=== PATIENT | male | born 1975 | race Caucasian/White ===

== ENCOUNTER 2020-12-15 08:35 | Observation (INO) | payer OTHER, SELFPAY ==
[2020-12-15] VITALS (14 sets, daily range): BP systolic 117–166; BP diastolic 80–97; PULSE 91–108; RESP 16–20; TEMP 36.5–36.8; O2SAT 95–100; BMI 26.4; BMI 26.6
--- NOTE | 2020-12-15 | IR_ITS ---
APPROVED REPORT Patient Location: Inpatient Past Due Accounts Clerk: RAMSES Oates RT (R) PROCEDURES Left heart catheterization Left ventriculogram Selective coronary angiogram INDICATION Unstable angina Informed consent was obtained prior to the procedure. COMPLICATIONS NONE Estimated Blood Loss: LESS THAN 10 ML TECHNIQUE One percent lidocaine used to anesthetize the right anterior aspect of the wrist. The right radial artery was accessed via the Seldinger technique. A 6 Latvian sheath was placed in the right radial artery. 2.5 mg of verapamil, 800 mcg of nitroglycerin, 1mg Lidocaine and 5000 U Heparin were given through the arterial sheath. The trap catheter was also used to perform left heart catheterization, left ventriculogram and selective coronary angiogram. At the end of the procedure the sheath was removed good hemostasis was achieved using Traclet band, patient was transferred to the postop holding area in stable condition. ANGIOGRAPHIC RESULTS The left main artery Normal The left anterior descending artery Proximal 20 mid vessel 30% stenosis The circumflex artery Large dominant with mild 10 to 20% luminal irregularities The right coronary artery Vestigial normal The THOMAS ventriculogram reveals Normal 65% The left ventricular end-diastolic pressure 10 mmHg IMPRESSION Mild to moderate proximal and mid LAD disease as described above Mild disease in the circumflex artery Normal ejection fraction Normal left ventricular NaSal pressure PLAN 1. Medical management Electronically signed by : Gwyn Motley MD 12/22/2020 11:31:04
--- NOTE | 2020-12-15 01:01 | PC.NURSE ---
Received request from Dr. Motley/Dr. Higgins to accept patient as Direct Admission from [facility] ED. Bed assignment obtained. Verbal orders from Dr. Higgins at this time: Admit for observation to med/surg floor activity - bed rest with bathroom privileges cardiac diet continuos cardiac monitoring AM Labs - CBC, CMP troponin series Resume all home medications Morphine 2mg IVP Q4H PRN for severe pain Zofran 4mg IVP Q6H PRN for nausea Nitropaste 0.5gm TD TID Lovenox SQ injection, 1mg/kg BID Cardiology consult Chest Xray - routine Orders repeated and verified and entered. Spoke to Giovana RN at [facility] ED, and advised patient would need a covid swab for admission, she advised they completed one at their facility and it was negative. I gave Giovana the bed assignment, as well as the # to call report to. She advised that patient would be coming by EMS, and that it would be awhile before he arrived. Instructed her to please call and inform me when the patient left their facility.
--- NOTE | 2020-12-15 02:20 | PC.NURSE ---
Spoke to Giovana RN at [facility] ED to check status on PT ETA. She advised at this time, patient had not left their facility due to EMS delays.
--- NOTE | 2020-12-15 04:06 | PC.NURSE ---
Francy RN at [facility] called to update on ETA of patient's transfer. She stated that there was another critical patient in their ED that needed to be transferred elsewhere, and the next available transfer truck wouldn't be able to bring patient to this facility until 0800. Updated nightshift charge, and will also relay this to Dr. Higgins and Dr. Motley on am rounds.
--- NOTE | 2020-12-15 06:00 | XR_ITS ---
PROCEDURE INFORMATION: Exam: XR Chest Exam date and time: 12/15/2020 6:00 AM Age: 45 years old Clinical indication: Sternal or substernal pain; Patient HX: Patient was emergently transferred to this hospital for a cardiac catheterization. Patient had heart cath about 30 minutes ago. ; Additional info: Chest pain TECHNIQUE: Imaging protocol: XR of the chest. Views: 2 views. COMPARISON: No relevant prior studies available. FINDINGS: Lungs: Hypoventilation/low lung volumes. Patchy atelectasis in the lower lobes and right upper lobe, greatest at the left base. Nonspecific interstitial prominence in the central lungs and right upper lobe, which may be chronic or acute in nature, no prior studies are available to compare. There is no focal consolidation. Pleural spaces: There is pleural thickening suggested along the lateral right chest wall, but no significant layering effusion visible. No pneumothorax. Heart/Mediastinum: Upper normal heart size. The aortic arch appears tortuous or ectatic. Bones/joints: Mild chronic appearing anterior wedge compression deformities at the thoracolumbar junction with kyphosis. Multilevel disc narrowing and spondylosis. Cervical spine degenerative changes with evidence of facet arthropathy. Soft tissues: No acute findings in the soft tissues. Overlying lunchroom monitor electrodes. IMPRESSION: 1. Prominent patchy subsegmental atelectasis, and nonspecific interstitial prominence in the lungs. 2. No focal consolidation. 3. Pleural thickening along the lateral right chest wall, no pneumothorax or layering pleural effusion seen. 4. Additional nonemergency and chronic findings as above.
[2020-12-15 09:04] LABS: Coronavirus 19, PCR Not Detected (NotDetected); Influenza A, PCR Not Detected (NotDetected); Influenza B, PCR Not Detected (NotDetected)
--- NOTE | 2020-12-15 09:22 | HMH.PHAINT ---
MEDICATION RECONCILIATION COMPLETE USING SURESCRIPTS AND PREVIOUS OFFICE VISIT
[2020-12-15 09:47] LABS: Basophils # 0.1 K/mm3 (0-0.2); Basophils % 0.6 % (0.1-2.0); Eosinophils # 0.1 K/mm3 (0.0-0.4); Eosinophils % 0.7 % (0.1-12.0); Hematocrit 44.7 % (42.0-52.0); Hemoglobin 15.5 g/dL (14.1-18.0); Lymphocytes # 1.5 K/mm3 (0.7-4.5); Mean Corpuscular HGB Conc 34.7 g/dL (31.8-35.4); Mean Corpuscular Hemoglobin 31.5 pg (27.0-31.2); Mean Corpuscular Volume 90.8 fl (80-94); Mean Platelet Volume 7.9 fl (7.4-10.4); Monocytes # 0.4 K/mm3 (0.1-1.0); Monocytes % 4.8 % (1.7-9.3); Neutrophils # 6.5 K/mm3 (1.8-7.8); Platelet Count 257 K/mm3 (142-424); Red Blood Count 4.92 M/mm3 (4.60-6.20); Red Cell Distribution Width 13.5 % (11.5-17.5); White Blood Count 8.5 K/mm3 (4.8-10.8)
--- NOTE | 2020-12-15 09:53 | HMH.CNCARD ---
History of Present Illness Consult date: 12/15/20 Requesting physician: Ruben Higgins Consult reason: chest pain Chief complaint: chest pain Additional Medical History:: 1. Status post tracheoesophageal fistula repair at age 3 months A. History of esophageal stricture, status post ballooning approximately 5 years ago 2. Elevated blood pressure 11/2020. Patient does not take antihypertensive medication. 3. History of normal stress test at [facility], 2020 4. History of palpitations with Holter monitor showing PACs and PVCs [facility] 2020 5. History of cat scratch fever status post 50 lymph nodes removed from right groin. History of present illness: 45-year-old white male transferred from [facility] due to chest pain yesterday. Patient was at a birthday constitution party and upon driving home developed substernal chest pain with left-sided neck and arm numbness/discomfort which prompted the visit to the ER for further evaluation. He was given aspirin and sublingual nitroglycerin with slow, gradual improvement in symptoms. Nitroglycerin paste was placed and due to patient being seen in our office last week was transferred to [facility] for further evaluation. [facility] History Medical History: Reports:: Heart Murmur, Hyperlipidemia, Hypertension *Have you ever received a pneumonia vaccine?: No *Have you received a flu vaccine this season?: No Other Medical History: Reports: Arthritis Other Surgeries: Yes: Hernia Repair - *Social History Smoking Status: Never smoker Alcohol Intake: current Alcohol Intake Frequency:: holidays/special occasions only Substance Use Type: denies use *Occupational Status:: employed Housing: house Household Members: spouse, children *Travel in the last 8 weeks: None Family Hx:: Diabetes, Heart Attack, Alcoholism Meds Home Medications Medication Instructions Recorded Confirmed Type albuterol sulfate 90 mcg/actuation 2 puff INHALATION Q4-6H PRN g 12/08/20 12/15/20 History aerosol inhaler aspirin 81 mg tablet,delayed 81 mg PO DAILY 12/08/20 12/15/20 History release buspirone 15 mg tablet 15 mg PO BID 12/08/20 12/15/20 History esomeprazole magnesium 40 mg 40 mg PO DAILY 12/08/20 12/15/20 History capsule,delayed release loratadine 10 mg tablet 10 mg PO DAILY 12/08/20 12/15/20 History Famotidine [Acid Clinical Services Consultant] 20 mg PO DAILY 12/15/20 12/15/20 History Allergies Allergy/AdvReac Type Severity Reaction Status Date / Time prednisone AdvReac Verified 12/08/20 14:00 Exam Vital signs and Labs for Last 24 Hours: Temp Pulse Resp BP Pulse Ox 97.7 F 95 H 17 166/97 H 97 12/15/20 08:49 12/15/20 08:49 12/15/20 08:49 12/15/20 08:49 12/15/20 08:49 Laboratory Results - last 24 hr 12/15/20 08:55: SARS-CoV-2 (PCR) Not detected, Influenza A Untype (PCR) Not detected, Influenza Type B (PCR) Not detected 12/15/20 09:20: WBC 8.5, RBC 4.92, Hgb 15.5, Hct 44.7, MCV 90.8, MCH 31.5 H, MCHC 34.7, RDW 13.5, Plt Count 257, MPV 7.9, Neut % (Auto) 76.0, Lymph % (Auto) 18.0, Valley % (Auto) 4.8, Eos % (Auto) 0.7, Baso % (Auto) 0.6, Neut # (Auto) 6.5, Lymph # (Auto) 1.5, Valley # (Auto) 0.4, Eos # (Auto) 0.1, Baso # (Auto) 0.1 I & O for Last 24 hours: Intake & Output 12/12/20 12/13/20 12/14/20 12/15/20 11:59 11:59 11:59 11:59 Weight 160 lb - Constitutional no acute distress - *Routine HEENT Exam Head: Present: normocephalic Eye: Present: EOMI, PERRL ENT: Present: mucous membranes moist - *Routine Neck Exam Present: supple. Absent: lymphadenopathy - *Routine Respiratory Exam Present: CTA bilaterally - *Routine Cardiovascular Exam Present: RRR - *Routine Abdominal Exam Present: soft, normoactive bowel sounds. Absent: tenderness - *Routine Extremities Exam Absent: cyanosis, clubbing, edema - *Routine Skin Exam Present: warm. Absent: rash - *Routine Neurological Exam Present: alert, oriented X3 Review of Systems -
--- NOTE | 2020-12-15 09:54 | ECG_ITS ---
APPROVED REPORT Exam: Resting ECG HR:82 bpm ECG Measurements Heart Rate 82 AXES NJ 136 P 36 QRSd 90 QRS 2 QT 370 T 14 QTc 432 Conclusion Normal sinus rhythm Normal ECG Electronically signed by : Reginald Lindsay MD 12/15/2020 21:16:00
[2020-12-15 10:02] LABS: Chloride 104 mmol/L (98-107); Potassium 4.1 mmoL/L (3.5-5.1); Sodium 140 mmol/L (136-145)
[2020-12-15 10:05] LABS: Alanine Aminotransferase 46 U/L (12-78); Albumin Level 4.2 g/dl (3.5-5.0); Albumin/Globulin Ratio 1.4 (1.1-1.8); Alkaline Phosphatase 105 U/L (38-126); Anion Gap 14.1 mEq/L (5-15); Aspartate Amino Transferase 33 U/L (17-59); Bilirubin,Total 0.7 mg/dl (0.2-1.3); Blood Urea Nitrogen 15 mg/dl (9-20); Calcium 9.3 mg/dl (8.4-10.2); Carbon Dioxide 26 mmol/L (22.0-30.0); Creatinine Clearance Estimated 108 mL/min (50-200); Estimated Glomerular Filt Rate 92 ml/min (>60); GFR (African American) 111 ML/MIN (>60); Globulin 3.1 g/dL (1.3-3.2); Glucose 112 mg/dl (74-100); Total Protein,Serum 7.3 g/dl (6.3-8.2)
[2020-12-15 10:23] LABS: Troponin I < 0.01 ng/ml (0.00-0.034)
--- NOTE | 2020-12-15 16:34 | PC.NURSE ---
Pt has done well since arriving back to the floor. VSS. remains at bedside. No other acute changes or complaints, will continue to monitor.
--- NOTE | 2020-12-15 17:37 | HMH.HPDC ---
General - General Admission date:: 12/15/20 Discharge date: 12/15/20 *Admission Date: 12/15/20 *Chief complaint: chest pain *History of present illness: 45-year-old white male transferred from [facility] due to chest pain yesterday. Patient was at a birthday libertarian and upon driving home developed substernal chest pain with left-sided neck and arm numbness/discomfort which prompted the visit to the ER for further evaluation. He was given aspirin and sublingual nitroglycerin with slow, gradual improvement in symptoms. Nitroglycerin paste was placed and due to patient being seen in cardiology office last week was transferred to [facility] for further evaluation. Patient was taken to the [facility] today per Dr. Motley. No significant findings were noted. [employer] relayed that he could be discharged home to follow-up in 1 week. Patient was accessed through the right radial artery. [facility] History Medical History: Reports:: Heart Murmur, Hyperlipidemia, Hypertension *Have you ever received a pneumonia vaccine?: No *Have you received a flu vaccine this season?: No Other Medical History: Reports: Arthritis Other Surgeries: Yes: Hernia Repair - *Social History Smoking Status: Never smoker Alcohol Intake: current Alcohol Intake Frequency:: holidays/special occasions only Substance Use Type: denies use *Occupational Status:: employed Housing: house Household Members: spouse, children *Travel in the last 8 weeks: None Family Hx:: Diabetes, Heart Attack, Alcoholism Review of Systems - Constitutional Denies anorexia - Eyes Denies change in vision - ENT Denies abnormal hearing - *Cardiovascular Reports chest pain, Reports rapid, pounding, or irregular heartbeat - *Respiratory Denies chest congestion - *Gastrointestinal Denies abdominal pain - *Genitourinary Denies difficulty urinating - *Musculoskeletal Denies joint pain - Integumentary/Breasts Denies yellowing of the skin - *Neurologic Denies behavioral changes - Psychiatric Denies behavioral changes - Endocrine Denies cold intolerance, Denies heat intolerance - Hematologic/Lymphatic Denies easy bleeding, Denies easy bruising - Allergic/Immunologic Denies hives Exam Vital signs and Labs for Last 24 Hours: Temp Pulse Resp BP Pulse Ox 98 F 108 H 17 125/88 95 12/15/20 13:21 12/15/20 16:46 12/15/20 16:40 12/15/20 16:40 12/15/20 16:40 Laboratory Results - last 24 hr 12/15/20 08:55: SARS-CoV-2 (PCR) Not detected, Influenza A Untype (PCR) Not detected, Influenza Type B (PCR) Not detected 12/15/20 09:20: WBC 8.5, RBC 4.92, Hgb 15.5, Hct 44.7, MCV 90.8, MCH 31.5 H, MCHC 34.7, RDW 13.5, Plt Count 257, MPV 7.9, Neut % (Auto) 76.0, Lymph % (Auto) 18.0, Banner % (Auto) 4.8, Eos % (Auto) 0.7, Baso % (Auto) 0.6, Neut # (Auto) 6.5, Lymph # (Auto) 1.5, Banner # (Auto) 0.4, Eos # (Auto) 0.1, Baso # (Auto) 0.1 12/15/20 09:20: Sodium 140, Potassium 4.1, Chloride 104, Carbon Dioxide 26, Anion Gap 14.1, BUN 15, Creatinine 0.90, Estimated Creat Clear 108, Estimated GFR 92, Est GFR ( Amer) 111, Glucose 112 H, Calcium 9.3, Total Bilirubin 0.7, AST 33, ALT 46, Alkaline Phosphatase 105, Total Protein 7.3, Albumin 4.2, Globulin 3.1, Albumin/Globulin Ratio 1.4 12/15/20 09:20: Troponin I < 0.01 I & O for Last 24 hours: Intake & Output 12/12/20 12/13/20 12/14/20 12/15/20 23:59 23:59 23:59 23:59 Intake Total 240 / 240 Balance 240 / 240 Weight 160 lb - Constitutional no acute distress - *Routine HEENT Exam Head: Present: normocephalic Eye: Present: EOMI, PERRL ENT: Present: mucous membranes moist - *Routine Neck Exam Present: supple. Absent: lymphadenopathy - *Routine Respiratory Exam Present: CTA bilaterally - *Routine Cardiovascular Exam Present: RRR - *Routine Abdominal Exam Present: soft, normoactive bowel sounds. Absent: tenderness - *Routine Rectal Exam Rectal:: deferred - *R
--- NOTE | 2020-12-15 17:48 | HMH.PHAVTE ---
[facility] Pharmacy VTE Monitoring - Patient Demographics Admission date: 12/15/20 Report Date: 12/15/20 Time: 17:48 Allergies/Adverse Reactions: Patient Allergies prednisone Adverse Reaction (Verified 12/08/20 14:00) Height: 1.65 m Weight: 72.575 kg Patient Problems: Current Active Problems History of esophageal stricture (Chronic) Elevated blood pressure reading (Chronic) Gastroesophageal reflux disease (Chronic) Palpitations (Acute) Chest pain (Acute) - VTE Risk Labs: VTE Related Lab Results Hgb 15.5 g/dL (14.1-18.0) 12/15/20 09:20 Hct 44.7 % (42.0-52.0) 12/15/20 09:20 Plt Count 257 K/mm3 (142-424) 12/15/20 09:20 BUN 15 mg/dl (9-20) 12/15/20 09:20 Creatinine 0.90 mg/dl (0.66-1.25) 12/15/20 09:20 Estimated Creat Clear 108 mL/min (50-200) 12/15/20 09:20 Clinical Trial Participant: No - Prophylaxis VTE Prophylaxis Ordered?: Yes Types of VTE Prophylaxis: TEDS Knee High, Pharmacological Pharmacologic Type: Enoxaparin
== END 2020-12-15 18:29 | disposition home or self-care (01) ==
PROVIDERS: Internal Medicine; Physician Assistant; Admitting Provider Family Medicine; PCP Emergency Medicine; Visit Provider Emergency Medicine
DX: R07.9 Chest pain, unspecified (principal); I25.110 Atherosclerotic heart disease of native coronary artery with unstable angina pectoris; I10 Essential (primary) hypertension; E78.5 Hyperlipidemia, unspecified; K21.9 Gastro-esophageal reflux disease without esophagitis; Z79.899 Other long term (current) drug therapy; Z20.822 Contact with and (suspected) exposure to COVID-19
CPT/HCPCS: 71046; 80053; 84484; 85025; 93005; 93306; 93458; 99152; C1725; C1769; C9803; G0378; J1644; Q9967; U0003; U0005

== ENCOUNTER → 2021-01-06 08:44 | Outpatient (CLI) | payer OTHER, SELFPAY ==
--- NOTE | 2021-01-06 08:48 | CT_ITS ---
PROCEDURE: CT ABDOMEN PELVIS W CON CLINICAL INDICATION: ALTERED BOWEL FUNCTION,CONSTIPATION,BLOATING,NAUSEA COMPARISON: No exams were available for comparison TECHNIQUE: IV Contrast: 75ML Isovue 370 Oral Contrast 450ml Redicat Axial images obtained with sagittal and coronal reformats. All CT scans at the facility use one or more dose reduction, viz: automated exposure control, ma/kV adjustment per patient size (including targeted exams where dose is matched to indication, i.e. head), or iterative reconstruction technique. FINDINGS: LOWER THORAX: Atelectatic or fibrotic changes in the right middle lobe and right lower lobe as well as the lingula and left lower ABDOMEN & PELVIS: Fatty liver. The spleen, adrenal glands, and pancreas have an unremarkable appearance. There is a 2 cm right renal cyst. No renal or ureteral calculi or hydronephrosis. No suspicious renal mass. No intestinal obstruction or free air. No evidence of appendicitis. There is a small umbilical hernia containing fat. Increased soft tissue density is present in the left inguinal region and may be seen with prior inguinal hernia repair. Please correlate with surgical history. No recurrence hernia evident. Mild thoracolumbar kyphosis IMPRESSION: No acute finding. Mild atelectatic changes or scarring in the lung bases. Suspect prior left inguinal hernia repair. Please correlate with surgical history Dictated by: Cj Nye MD 01/07/2021 16:47 Cj Nye MD in [place] 01/07/2021 16:47
== END ==
PROVIDERS: PCP Family Medicine; Visit Provider Nurse Practitioner Family
DX: R10.84 Generalized abdominal pain (principal); R11.0 Nausea; R14.0 Abdominal distension (gaseous); R19.4 Change in bowel habit; K59.00 Constipation, unspecified
CPT/HCPCS: 74177; Q9967

== ENCOUNTER → 2021-01-13 14:05 | Outpatient (CLI) | payer OTHER, SELFPAY ==
--- NOTE | 2021-01-13 14:11 | MR_ITS ---
PROCEDURE: MR HEAD/BRAIN WO CON CLINICAL INDICATION: HEADACHE,SLEEP DISORDER,POOR SHORT TERM MEMORY COMPARISON: No exams were available for comparison TECHNIQUE: Routine multiplanar multi echo sequences are performed without gadolinium enhancement. FINDINGS: No midline shift, mass effect, intracranial hemorrhage, or hydrocephalus is evident. The cerebellopontine angles have an unremarkable appearance. There is an asymmetric area of CSF signal intensity along the medial aspect of the left cerebellum posteriorly suggesting an arachnoid cyst measuring approximately 3 cm cephalad caudad, 1.2 cm AP, and 1.1 cm transverse. The midbrain and brainstem appear unremarkable. The pituitary, optic chiasm, corpus callosum, and craniocervical junction have an unremarkable appearance. Minimal amount of fluid signal in the inferior tip of the right mastoid sinus. No paranasal sinus air-fluid level evident. Unremarkable appearing orbits. IMPRESSION: No acute intracranial findings. The small left posterior fossa arachnoid cyst. Dictated by: Cj Nye MD 01/14/2021 16:12 Cj Nye MD in [place] 01/14/2021 16:12
== END ==
PROVIDERS: PCP Family Medicine; Visit Provider Specialist
DX: R51.9 Headache, unspecified (principal); R07.9 Chest pain, unspecified; R41.3 Other amnesia; G25.0 Essential tremor; G47.19 Other hypersomnia; G47.30 Sleep apnea, unspecified; R53.83 Other fatigue
CPT/HCPCS: 70551

== ENCOUNTER → 2021-01-23 13:33 | Outpatient (CLI) | payer OTHER, SELFPAY | LOC: SL 13:35 | PROVIDERS: PCP Family Medicine; Visit Provider Specialist | DX: G47.30 Sleep apnea, unspecified (principal); R07.9 Chest pain, unspecified; G25.0 Essential tremor; G47.19 Other hypersomnia; R41.3 Other amnesia | CPT/HCPCS: 95806 ==

== ENCOUNTER → 2021-01-29 11:40 | Outpatient (CLI) | payer OTHER, SELFPAY ==
[2021-01-29 12:51] LABS: Basophils # 0.1 K/mm3 (0-0.2); Basophils % 0.9 % (0.1-2.0); Eosinophils # 0.1 K/mm3 (0.0-0.4); Eosinophils % 1.5 % (0.1-12.0); Hematocrit 44.6 % (42.0-52.0); Hemoglobin 15.6 g/dL (14.1-18.0); Lymphocytes # 1.5 K/mm3 (0.7-4.5); Lymphocytes % 29.3 % (10-50); Mean Corpuscular HGB Conc 34.9 g/dL (31.8-35.4); Mean Corpuscular Hemoglobin 31.3 pg (27.0-31.2); Mean Corpuscular Volume 89.7 fl (80-94); Mean Platelet Volume 7.8 fl (7.4-10.4); Monocytes # 0.4 K/mm3 (0.1-1.0); Monocytes % 7.2 % (1.7-9.3); Neutrophils # 3.2 K/mm3 (1.8-7.8); Neutrophils % 61.1 % (37.0-80.0); Platelet Count 236 K/mm3 (142-424); Red Blood Count 4.98 M/mm3 (4.60-6.20); White Blood Count 5.2 K/mm3 (4.8-10.8)
[2021-01-29 13:12] LABS: Thyroid Stimulating Hormone 2.42 uIU/mL (0.465-4.68)
[2021-01-29 13:58] LABS: Erythrocyte Sedimentation Rate 6 mm/hr (0-15)
[2021-02-12 18:23] LABS: Antinuclear Antibodies (ANA) NEGATIVE
== END ==
PROVIDERS: Visit Provider Specialist
DX: R51.9 Headache, unspecified (principal); G93.40 Encephalopathy, unspecified
CPT/HCPCS: 36415; 84439; 84443; 85025; 85651; 86038; 86225; 86235; 86618

== ENCOUNTER → 2021-02-06 08:48 | Outpatient (CLI) | payer OTHER, SELFPAY | PROVIDERS: PCP Family Medicine; Visit Provider Specialist | DX: G93.40 Encephalopathy, unspecified (principal) | CPT/HCPCS: 95816; 95819 ==

== ENCOUNTER → 2021-02-10 07:15 | Outpatient (CLI) | payer OTHER, SELFPAY ==
--- NOTE | 2021-02-10 07:16 | MR_ITS ---
PROCEDURE INFORMATION: Exam: MRA Head Without Contrast; Arteriography Exam date and time: 02/10/2021 7:16 AM Age: 45 years old Clinical indication: Other: Encephalopathy TECHNIQUE: Imaging protocol: Magnetic resonance angiography head without contrast. Exam focused on the arteries. COMPARISON: MR HEAD/BRAIN WO CON 01/13/2021 2:42 PM FINDINGS: ANTERIOR CIRCULATION: Right internal carotid artery: Intracranial segment is patent with no significant stenosis. No aneurysm. Right middle cerebral artery: No occlusion or significant stenosis. No aneurysm. Right anterior cerebral artery: No occlusion or significant stenosis. No aneurysm. Left internal carotid artery: Intracranial segment is patent with no significant stenosis. No aneurysm. Left middle cerebral artery: No occlusion or significant stenosis. No aneurysm. Left anterior cerebral artery: No occlusion or significant stenosis. No aneurysm. POSTERIOR CIRCULATION: Right vertebral artery: No occlusion or significant stenosis. No aneurysm. Left vertebral artery: No occlusion or significant stenosis. No aneurysm. Basilar artery: No occlusion or significant stenosis. No aneurysm. Right posterior cerebral artery: No occlusion or significant stenosis. No aneurysm. Left posterior cerebral artery: No occlusion or significant stenosis. No aneurysm. IMPRESSION: No stenosis or occlusion.
== END ==
PROVIDERS: PCP Family Medicine; Visit Provider Specialist
DX: R51.9 Headache, unspecified (principal)
CPT/HCPCS: 70544

== ENCOUNTER → 2021-04-13 10:36 | Outpatient (CLI) | payer OTHER, SELFPAY | PROVIDERS: Visit Provider Specialist | DX: Z01.812 Encounter for preprocedural laboratory examination (principal); Z11.52 Encounter for screening for COVID-19; G47.33 Obstructive sleep apnea (adult) (pediatric) | CPT/HCPCS: C9803; U0003; U0005 ==

== ENCOUNTER → 2021-04-15 20:47 | Outpatient (CLI) | payer OTHER, SELFPAY | PROVIDERS: PCP Family Medicine; Visit Provider Specialist | DX: R06.83 Snoring (principal) | CPT/HCPCS: 95810 ==

== ENCOUNTER → 2021-05-06 09:53 | Outpatient (CLI) | payer OTHER, SELFPAY ==
[2021-05-06 12:26] LABS: Alanine Aminotransferase 44 U/L (12-78); Albumin Level 4.2 g/dl (3.5-5.0); Alkaline Phosphatase 125 U/L (38-126); Aspartate Amino Transferase 24 U/L (17-59); Bilirubin,Direct 0.2 mg/dl (0.0-0.4); Bilirubin,Indirect 0.5 mg/dL (0.0-0.9); Bilirubin,Total 0.7 mg/dl (0.2-1.3); Bilirubin,Unconjugated 0.5 mg/dL (0.0-1.1); Chol/HDL Ratio 4.6 (1-3.5); Cholesterol 151 mg/dl (140-200); HDL Cholesterol 33 mg/dl (40-60); Total Protein,Serum 6.9 g/dl (6.3-8.2); Triglycerides 207 mg/dl (30-150); VLDL Cholesterol 41 mg/dL (0-40)
[2021-05-06 12:37] LABS: Direct LDL Cholesterol 78.87 mg/dL (100-129)
[2021-05-06 12:49] LABS: Basophils # 0.1 K/mm3 (0-0.2); Basophils % 1.1 % (0.1-2.0); Eosinophils # 0.1 K/mm3 (0.0-0.4); Eosinophils % 1.6 % (0.1-12.0); Hematocrit 48.8 % (42.0-52.0); Hemoglobin 15.8 g/dL (14.1-18.0); Lymphocytes # 1.6 K/mm3 (0.7-4.5); Lymphocytes % 31.1 % (10-50); Mean Corpuscular HGB Conc 32.3 g/dL (31.8-35.4); Mean Corpuscular Hemoglobin 29.7 pg (27.0-31.2); Mean Corpuscular Volume 91.8 fl (80-94); Mean Platelet Volume 7.7 fl (7.4-10.4); Monocytes # 0.3 K/mm3 (0.1-1.0); Monocytes % 6.4 % (1.7-9.3); Neutrophils # 3.1 K/mm3 (1.8-7.8); Neutrophils % 59.8 % (37.0-80.0); Platelet Count 269 K/mm3 (142-424); Red Blood Count 5.31 M/mm3 (4.60-6.20); Red Cell Distribution Width 12.7 % (11.5-17.5); White Blood Count 5.2 K/mm3 (4.8-10.8)
[2021-05-06 13:05] LABS: Anion Gap 13.3 mEq/L (5-15); Blood Urea Nitrogen 13 mg/dl (9-20); Calcium 8.7 mg/dl (8.4-10.2); Carbon Dioxide 25 mmol/L (22.0-30.0); Chloride 104 mmol/L (98-107); Estimated Glomerular Filt Rate 81 ml/min (>60); GFR (African American) 98 ML/MIN (>60); Glucose 115 mg/dl (74-100); Potassium 4.3 mmoL/L (3.5-5.1); Sodium 138 mmol/L (136-145)
== END ==
PROVIDERS: Nurse Practitioner Family; Visit Provider Physician Assistant
DX: R06.00 Dyspnea, unspecified (principal); R00.2 Palpitations; R07.89 Other chest pain; I10 Essential (primary) hypertension; K21.9 Gastro-esophageal reflux disease without esophagitis
CPT/HCPCS: 80048; 80061; 80076; 85025

== ENCOUNTER → 2021-10-09 07:52 | Outpatient (CLI) | payer OTHER, SELFPAY ==
--- NOTE | 2021-10-09 08:01 | MR_ITS ---
FINAL REPORT CLINICAL HISTORY: LBP W/ LEFT LEG PAIN. NUMBNESS AND TINGLING. SYMPTOMS X'S 2 MONTHS NKI. FINDINGS: Multiplanar MR imaging of the lumbar spine was performed without contrast. On the sagittal T2-weighted images, disc degeneration is seen at several levels. The vertebral alignment is normal. There is no evidence of fracture. No bony mass is identified. The conus has an unremarkable appearance. L2-3: There is an annular disc bulge with facet arthropathy and vertebral osteophytes. There is no significant canal stenosis. There is moderate bilateral neural foraminal narrowing. L3-4: An annular disc bulge is present. There is a small left foraminal disc protrusion. There is mild left neural foraminal narrowing. L4-5: An annular disc bulge is present. There is a small left paracentral disc protrusion. There is mild bilateral neural foraminal narrowing. L5-S1: An annular disc bulge is present. There is partial lumbarization of S1. There is mild left neural foraminal narrowing. IMPRESSION: Multilevel degenerative disc disease with areas of neural foraminal narrowing as described. Disc protrusions at L3-4 and L4-5. Partial lumbarization of S1. Reviewed, Interpreted and Dictated by Cordell Mobley III, MD Transcribed by Cora Rivera Authenticated and [facility]
== END ==
PROVIDERS: PCP Family Medicine; Visit Provider Orthopaedic Surgery
DX: M54.50 Low back pain, unspecified (principal)
CPT/HCPCS: 72148; 76376

== ENCOUNTER → 2021-10-28 10:20 | Outpatient (POV) | payer OTHER, SELFPAY ==
[2021-10-28 11:18] VITALS: BP 123/85; PULSE 81; RESP 18; TEMP 37.4; O2SAT 97; BMI 24.3
--- NOTE | 2021-10-28 12:23 | EXP.PAIN.OV ---
HPI Data of Consult Patient: new to practice Consult date: 10/28/21 Requesting Physician: Angelica Otero APRN Primary Care Provider: Julian Chance Consult Narrative Reason for consult: Low back pain, right leg pain History of present illness: Mr. Cr is a 46 year old male who presents today as a new patient. He is a referral from Solis Otero at [facility]. Today the patient rates his pain a 5 out of 10 and states it is all in his mid/low back that radiates into his right leg down to his foot. Patient describes this as a aching, sharp, numb sensation that is constant and worsened with certain positioning and increased activity. He states he also has pain in his neck and right shoulder pain. Patient denies any new trauma or injury to the site. He states this has been going on for years however it has seemed to worsen over the last month. 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 Due to his pain affecting his activities of daily living he has been on disability in the past. Patient has had surgery in the past on his right shoulder. Patient states he has seen a chiropractor years ago that provided some improvement of his symptoms. He has tried [id number] Tylenol and ibuprofen however these do not seem to improve his symptoms. He is also used ice and heat and an at home tens units with some improvement of his symptoms. Patient has done at home exercising and stretches for longer than 6 weeks with no improvement of his symptoms. He has been ordered a referral for physical therapy by [facility] but has not started yet. Patient also states he has had steroids in injective therapy in the past that did provide some improvement of his symptoms. His Lisandro is [phone]. It is been reviewed and appropriate. CC: Angelica Otero APRN [facility] Medical History (Updated 10/28/21 @ 12:33 by Angelica Otero APRN) Asthma Chest pain Constipation Diabetes Dizziness Dyspnea Gastroesophageal reflux disease HLD (hyperlipidemia) HTN (hypertension) Palpitations Social History Smoking Status: Never smoker alcohol intake: current substance use type: denies use current occupational status: unemployed Travel in the last 8 weeks: None household members: spouse and children housing: house Review of Systems Review of Systems Review of systems:: pertinent systems reviewed and negative unless documented below Review of systems (narrative): Review of Systems: General: No recent weight changes, no fever, no sleep disturbances Respiratory: No cough, no shortness of air, no recurring pulmonary infections Cardiovascular/peripheral vascular: No chest pain, no palpitations, no edema, no shortness of breath Gastrointestinal: No new onset incontinence, normal bowel movements reported Genitourinary: No new onset incontinence Musculoskeletal: Low back pain, right leg pain, right shoulder pain, neck pain, mid back pain Psychiatric: [Normal mood/affect] Neurological: [Denies weakness in extremities], [denies balance issues] Meds Home Medications and Allergies Home Medications Medication Instructions Recorded Confirmed Type albuterol sulfate 90 mcg/actuation 2 puff inhalation Q4-6H PRN asthma 12/08/20 10/28/21 History aerosol inhaler aspirin 81 mg tablet,delayed 81 mg PO DAILY heart health 12/08/20 10/28/21 History release loratadine 10 mg tablet 10 mg PO DAILY Allergy symptoms 12/08/20 10/28/21 History pantoprazole 40 mg tablet,delayed 40 mg PO DAILY STOMACH 12/29/20 10/28/21 History release naproxen sodium 220 mg tablet 220 mg PO Q12H Pain 01/05/21 10/28/21 History (Flanax (naproxen)) polyethylene glycol 3350 17 17 g PO DAILY BOWELS 01/05/21 10/28/21 History gram/dose oral powder (Miralax) psyllium husk 0.4 gram capsule 0.4 g PO DAILY BOWELS 01/05/21 10/28/21 History (Fiber (psyllium husk)) fluticasone 113 mcg-salmeterol 14 1 inh
== END ==
PROVIDERS: PCP Family Medicine; Visit Provider Nurse Practitioner Family
DX: M51.36 Other intervertebral disc degeneration, lumbar region (principal); M47.816 Spondylosis without myelopathy or radiculopathy, lumbar region; M79.604 Pain in right leg; M25.511 Pain in right shoulder; M54.2 Cervicalgia; M48.061 Spinal stenosis, lumbar region without neurogenic claudication
CPT/HCPCS: 99202; G0463

== ENCOUNTER → 2021-11-06 08:43 | Outpatient (CLI) | payer OTHER, SELFPAY ==
--- NOTE | 2021-11-06 08:46 | MR_ITS ---
FINAL REPORT CLINICAL HISTORY: NECK AND MID BACK PAIN. NECK PAIN . RIGHT ARM PAIN, NUMBESS, AND TINGLING. HEADACHE. MID BACK PAIN RADIATES BILATERALLY. FINDINGS: Multiplanar MR imaging of the cervical spine was performed without contrast. On the sagittal T2-weighted images, disc degeneration is seen at multiple levels. There is kyphosis centered at C7. There is no evidence of fracture. The vertebral alignment is normal. The cervical spinal cord has an unremarkable appearance without evidence of mass, edema or syrinx. No significant canal stenosis is identified. The cervicomedullary junction is normal. C2-3: There is no significant canal stenosis or neural foraminal narrowing. C3-4: Bilateral uncovertebral osteophytes are present. C4-5: A disc osteophyte complex is present with severe right and mild left neural foraminal narrowing. C5-6: A disc osteophyte complex is present with mild right neural foraminal narrowing. C6-7: A disc osteophyte complex is present with moderate right neural foraminal narrowing. C7-T1: Bilateral uncovertebral osteophytes are present with mild bilateral neural foraminal narrowing. T1-2: No significant canal stenosis or neural foraminal narrowing. T2-3: There is a right foraminal disc protrusion with covering osteophytes and moderate right neural foraminal narrowing. IMPRESSION: Multilevel degenerative disc disease and spondylosis with areas of neural foraminal narrowing which is worse on the right at C4-5. Right foraminal disc protrusion with covering osteophytes at T2-3. Reviewed, Interpreted and Dictated by Cordell Mobley III, MD Transcribed by Karishma Sanchez Authenticated and [facility]
--- NOTE | 2021-11-06 08:46 | MR_ITS ---
FINAL REPORT CLINICAL HISTORY: NECK AND MID BACK PAIN. NECK PAIN . RIGHT ARM PAIN, NUMBESS, AND TINGLING. HEADACHE. MID BACK PAIN RADIATES BILATERALLY. FINDINGS: Multiplanar MR imaging of the thoracic spine was performed without contrast. On the sagittal T2-weighted images, disc degeneration is seen at multiple levels. There is no evidence of fracture. The vertebral alignment is normal. No bony mass is identified. The thoracic spinal cord has an unremarkable appearance without evidence of mass, edema or syrinx. There is no evidence of canal stenosis or cord compression. On the axial images, there is a small left paracentral disc protrusion at T9-10. There is a right foraminal disc protrusion with covering osteophytes at T2-3. This finding is better seen on the cervical spine exam. There are bulges and small anterior osteophytes at multiple levels. There is no evidence of significant canal stenosis. No paraspinous soft tissue abnormality is seen. IMPRESSION: Multilevel disc degeneration and spondylosis at multiple levels. Disc protrusions at T2-3 and T9-10. Reviewed, Interpreted and Dictated by Cordell Mobley III, MD Transcribed by Karishma Sanchez Authenticated and [facility]
== END ==
PROVIDERS: PCP Family Medicine; Visit Provider Nurse Practitioner Family
DX: M54.2 Cervicalgia (principal); M54.6 Pain in thoracic spine
CPT/HCPCS: 72141; 72146; 76376

== ENCOUNTER → 2021-11-12 14:16 | Outpatient (CLI) | payer OTHER, SELFPAY ==
--- NOTE | 2021-11-12 14:17 | US_ITS ---
FINAL REPORT CLINICAL HISTORY: CLAUDICATION,HTN,HLD,PRE DM,REST PAIN FINDINGS: COMPLETE ANKLE/BRACHIAL INDICES BILATERAL Complete ankle brachial indices were obtained. The right CLIFFORD is 1.2. The left CLIFFORD is 1.1. IMPRESSION: ABIs are within normal limits bilaterally. Reviewed, Interpreted and Dictated by Tin Maynard MD Transcribed by Jane Coleman Authenticated and . [facility]
== END ==
PROVIDERS: PCP Family Medicine; Visit Provider Physician Assistant
DX: I70.213 Atherosclerosis of native arteries of extremities with intermittent claudication, bilateral legs (principal)
CPT/HCPCS: 93923

== ENCOUNTER 2021-11-13 11:39 | Day surgery (SDC) | payer OTHER, SELFPAY ==
[2021-11-13 11:51] VITALS: BP 130/87; PULSE 77; RESP 20; TEMP 36.8; O2SAT 98; BMI 23.6
[2021-11-13 12:07] VITALS: BP 138/89; PULSE 80; RESP 18; O2SAT 97
[2021-11-13 12:08] VITALS: BP 119/82; PULSE 79; RESP 18; O2SAT 98
[2021-11-13 12:18] VITALS: BP 137/88; PULSE 74; RESP 20; O2SAT 99
--- NOTE | 2021-11-13 12:18 | P.PCN_ITS ---
Procedure Date: 11/13/21 Time: 12:18 Anesthesiologist:: Sarthak Hernandez MD Complications:: None Pre-procedure Diagnosis:: Degenerative disc disease of lumbar spine with lumbar radiculopathy symptoms Post-procedure Diagnosis:: Same Indications for Procedure:: Patient is a pleasant 46-year-old white male who we are treating for low back pain with lumbar radiculopathy symptoms. He is referred by Dr. Solis Otero with increasing low back pain and leg pain. He is not a surgical candidate. He is referred for physical therapy. We will do a lumbar epidural steroid injection today to see if this will help with his pain symptoms. Procedure Details:: Informed consent was obtained and the risk and benefits of the procedure was explained to the patient. The patient was taken to the procedure room. The patient was placed prone on the procedure table. The patient was prepped and draped in sterile fashion. C-arm fluoroscopy was used to view the lumbar spine. Skin and subcutaneous tissues were anesthetized using lidocaine. I placed an 18-gauge epidural needle and advanced into the L4-L5 interspace using fluoroscopic guidance and [id number] to air. After confirmation of needle placement in the epidural space with dye I injected 2 mL of lidocaine 1.5% with Depo-Medrol 80 mg. Patient tolerated the procedure well with no complications. Plan and Disposition:: Given his epidurogram today I do not see significant stenosis. We will follow- up with him to see how he does with these lumbar pleural steroid injections. We will plan on repeat if beneficial.
== END 2021-11-13 12:19 | disposition home or self-care (01) ==
PROVIDERS: PCP Family Medicine; Visit Provider Anesthesiology
DX: M51.16 Intervertebral disc disorders with radiculopathy, lumbar region (principal)
CPT/HCPCS: 62323; J1040; Q9966

== ENCOUNTER → 2021-11-30 14:50 | Outpatient (POV) | payer OTHER, SELFPAY ==
[2021-11-30 15:04] VITALS: BP 125/84; PULSE 96; RESP 18; TEMP 37.3; O2SAT 99; BMI 23.3
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
== END | disposition home or self-care (01) ==
PROVIDERS: Visit Provider Student in an Organized Health Care Education/Training Program
DX: M51.16 Intervertebral disc disorders with radiculopathy, lumbar region (principal); M50.10 Cervical disc disorder with radiculopathy, unspecified cervical region; M51.34 Other intervertebral disc degeneration, thoracic region
CPT/HCPCS: 99212; G0463

== ENCOUNTER 2021-12-08 13:58 | Day surgery (SDC) | payer OTHER, SELFPAY ==
[2021-12-08 14:10] VITALS: BP 140/87; PULSE 84; RESP 18; TEMP 36.9; O2SAT 98; BMI 23.8
[2021-12-08 14:52] VITALS: BP 130/81; PULSE 91; RESP 18; O2SAT 97
[2021-12-08 14:54] VITALS: BP 130/81; PULSE 91; RESP 18; O2SAT 98
[2021-12-08 14:57] VITALS: BP 128/85; PULSE 84; RESP 18; O2SAT 99
--- NOTE | 2021-12-08 14:58 | EXP.PAIN.PRO ---
Procedure Date: 12/08/21 Time: 14:50 Anesthesiologist:: Darinel Velasquez CRNA Complications:: None Pre-procedure Diagnosis:: Degenerative disc disease thoracic spine. Thoracic radiculopathy Post-procedure Diagnosis:: Same Indications for Procedure:: Patient is a pleasant 46-year-old male that comes to our clinic today for with thoracic back pain as well as thoracic radiculopathy bilaterally. Procedure Details:: Procedure: Thoracic epidural steroid injection under fluoroscopy Informed consent was obtained and the risks and benefits of the procedure were explained to the patient. The patient was taken to the procedure room and noninvasive monitors placed, including noninvasive blood pressure cuff and pulse oximeter. The thoracic spine was viewed using C-arm Fluoroscopy and prepped using Chloraprep as a cleansing solution and the T8-9 interspace was identified using fluoroscopy guidance. Skin and subcutaneous tissues were anesthetized using lidocaine 1.5% and a 25-gauge needle. After this, an 18-gauge Touhy epidural needle was placed into the T8-9 interspace and advanced using fluoroscopic guidance and loss of resistance to air until the epidural space was encountered. After confirmation of needle placement in the epidural space, with dye, a solution containing normal saline, 3 mL and Depo-Medrol 80 mg were incrementally injected into the lumbar epidural space. The patient tolerated the procedure well with no complications. The patient was observed in the Pain Clinic and then discharged home neurologically intact. Plan and Disposition:: Patient was discharged without incident.
== END 2021-12-08 14:47 | disposition home or self-care (01) ==
PROVIDERS: PCP Family Medicine; Visit Provider Nurse Anesthetist, Certified Registered
DX: M51.14 Intervertebral disc disorders with radiculopathy, thoracic region (principal)
CPT/HCPCS: 62321; J1040

== ENCOUNTER → 2021-12-24 13:53 | Outpatient (POV) | payer OTHER, SELFPAY ==
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
[2021-12-24 14:41] VITALS: BP 142/80; PULSE 70; RESP 18; TEMP 37.2; O2SAT 99; BMI 22.7
== END ==
PROVIDERS: Visit Provider Nurse Practitioner Family
DX: M51.16 Intervertebral disc disorders with radiculopathy, lumbar region (principal); M51.14 Intervertebral disc disorders with radiculopathy, thoracic region
CPT/HCPCS: 99212; G0463

== ENCOUNTER 2021-12-29 12:39 | Day surgery (SDC) | payer OTHER, SELFPAY ==
[2021-12-29 12:47] VITALS: BP 140/91; PULSE 84; RESP 18; TEMP 36.9; O2SAT 97; BMI 24.2
[2021-12-29 12:57] VITALS: BP 150/88; PULSE 91; RESP 18; O2SAT 97
[2021-12-29 12:58] VITALS: BP 150/88; PULSE 91; RESP 18; O2SAT 97
--- NOTE | 2021-12-29 13:03 | EXP.PAIN.PRO ---
Procedure Date: 12/29/21 Time: 12:50 Anesthesiologist:: Darinel Velasquez CRNA Complications:: None Pre-procedure Diagnosis:: Degenerative disc thoracic spine. Disc bulge T9-10. Post-procedure Diagnosis:: Same. Indications for Procedure:: Very pleasant 46-year-old male that comes our clinic today for T9-10 epidural steroid injection. Patient had a previous T8-9 on 12/08/2021. Patient reports 2 days of significant improvement terms of his thoracic back pain. Today we will inject T9-10. Patient describes his thoracic pain as constant, dull, aching. He also complains of left side radicular symptoms into the left rib cage. Procedure Details:: Procedure:Thoracic epidural steroid injection under fluoroscopy Informed consent was obtained and the risks and benefits of the procedure were explained to the patient. The patient was taken to the procedure room and noninvasive monitors placed, including noninvasive blood pressure cuff and pulse oximeter. The back was viewed using C-Arm fluoroscopy and prepped using Betadine as a cleansing solution and the T9-T10 interspace was palpated. Skin and subcutaneous tissues were anesthetized using lidocaine 1.5% and a 25-gauge needle. After this, an 18-gauge Touhy epidural needle was placed into the T9-T10 interspace and advanced using fluoroscopic guidance and loss of resistance to air until the epidural space was encountered. After confirmation of needle placement in the epidural space, with dye, a solution containing lidocaine 1.5%, 4 mL and Depo-Medrol 80 mg were incrementally injected into the thoracic epidural space. The patient tolerated the procedure well with no complications. The patient was observed in the Pain Clinic and then discharged home neurologically intact. Plan and Disposition:: Patient was discharged without incident.
[2021-12-29 13:20] VITALS: BP 127/89; PULSE 79; RESP 18; O2SAT 97
== END 2021-12-29 13:20 | disposition home or self-care (01) ==
PROVIDERS: PCP Family Medicine; Visit Provider Nurse Anesthetist, Certified Registered
DX: M51.34 Other intervertebral disc degeneration, thoracic region (principal)
CPT/HCPCS: 62321; J1040

== ENCOUNTER → 2022-01-20 14:29 | Outpatient (POV) | payer OTHER, SELFPAY ==
[2022-01-20 14:40] VITALS: BP 111/87; PULSE 76; RESP 18; O2SAT 97; BMI 23.3
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
== END ==
PROVIDERS: PCP Family Medicine; Visit Provider Nurse Practitioner Family
DX: M51.16 Intervertebral disc disorders with radiculopathy, lumbar region (principal); M51.14 Intervertebral disc disorders with radiculopathy, thoracic region
CPT/HCPCS: 99212; G0463

== ENCOUNTER 2022-02-05 08:30 | Outpatient (RCR) | payer OTHER, SELFPAY ==
--- NOTE | 2022-01-06 10:05 | HMH.PTOPEV ---
PT Outpatient Evaluation Rehab PT Outpatient Evaluation Start: 01/06/22 09:45 Freq: Status: Active Protocol: Document 01/06/22 09:46 MANJEET (Rec: 01/06/22 10:04 MANJEET [id number]) E-signed By Alfonso Lewis, PT Outpatient Therapy Subjective History Subjective History Patient is a 46 year old male presenting to outpatient PT with reports of chronic mid/ lower thoracic spine (L>R), lumbar spine pain and RLE radicular symptoms. Most recent imaging indicates bulging discs and spodylosis at T2/3 and T9/10 levels, as well as disc protrusions at L3 /4, L 4/5 and lumbarization of L 5/S1. Comorbidiites include hx of 20-30% coronary blockage, HL, B CTR and R RCR. Chief Complaint Pain,Stiff,Paresthesia Symptom Type Ache,Sharp,Numbness,Tingling Symptoms Relieved By Rest/Positioning,Heat,Ice,OTC Meds Prior Functional Limitations Standing,Sitting,Walking Current Functional Limitations Lifting,Housework,Standing, Sitting,Walking,Bending/ Stooping Symptom Description Constant but Variable Level of pain today (0-10) 6 Pain scale - at its best (0-10) 3 Pain scale - at its worst (0-10) 9 Lumbopelvic Eval Posture Thoracic Spine Posture Standing Position Increased Kyphosis Assistive device Assistive Devices None / NA Palapation tenderness bilateral thoracic spinal tenderness Yes: lower TS 3/4 buttock tenderness Yes: R>L 3/4 Lumbar/Sacral Palpation Findings Tenderness Accessory Movement T10 bilateral T11 bilateral T12 bilateral L3 bilateral L4 bilateral L5 bilateral S1 bilateral Range of Motion Lumbar Spine Active Flexion Range of 68 Motion (degrees) Lumbar Spine Active Extension Range of 22 Motion (degrees) Left Lumbar Spine Lateral Flexion Active 12 Range of Motion (degrees) Right Lumbar Spine Lateral Flexion 16 Active Range of Motion (degrees) Lumbar Spine ROM Limitations Soft Tissue Tightness Manual Muscle Test Bilateral Knee Extension Strength Grade 4 Good Knee Flexion Strength Grade 4 Good Hip Flexion Strength Grade 4 Good Extensor Hallucis Longus Strength Grade 4
--- NOTE | 2022-02-05 09:07 | HMH.RHREAS ---
Rehab Reassessment Rehab OP Re-assessment Start: 02/05/22 08:53 Freq: Status: Active Protocol: Document 02/05/22 08:53 MANJEET (Rec: 02/05/22 09:07 MANJEET [id number]) E-signed By Alfonso Lewis, PT Rehab Re-assessment Subjective Subjective Patient reports 10% improvement since start of care. Objective Objective Notes AROM: flx 65; ext 18; SBR 16; SBL 18 MMT: RLE 4/5 grossly; LLE 4+/5 grossly Pain: 7/10 currently; 9/10 at worst over past week Neuro: patient continues to report intermittent NT to L4/5 /S1 dermatomes Assessment Progress Assessment Slower Than Expected Assessment Notes Patient would benefit from continuing with skilled PT services in order to address functional limitations with all standing/walking/bending and lifting activities. Intro of HVLAT seems to have good relief of symptoms. Patient goals met STG2 Goals Not Met All others Revised Goals NA Plan Plan Continue with current POC. Frequency of Therapy 2x/week Duration of therapy 4 weeks Time and Billing Re-Eval Time 15 Re-Eval Billing Units 1 PHYSICIAN CERTIFICATION: I certify the specified therapy services for Oren Cr are required, authorized, and reviewed every 30 days.
--- NOTE | 2022-02-24 16:19 | HMH.RHREAS ---
Rehab Reassessment Rehab OP Re-assessment Start: 02/05/22 08:53 Freq: Status: Active Protocol: Document 02/05/22 08:53 MANJEET (Rec: 02/05/22 09:07 MANJEET [id number]) E-signed By Alfonso Lewis, PT Rehab Re-assessment Subjective Subjective Patient reports 10% improvement since start of care. Objective Objective Notes AROM: flx 65; ext 18; SBR 16; SBL 18 MMT: RLE 4/5 grossly; LLE 4+/5 grossly Pain: 7/10 currently; 9/10 at worst over past week Neuro: patient continues to report intermittent NT to L4/5 /S1 dermatomes Assessment Progress Assessment Slower Than Expected Assessment Notes Patient would benefit from continuing with skilled PT services in order to address functional limitations with all standing/walking/bending and lifting activities. Intro of HVLAT seems to have good relief of symptoms. Patient goals met STG2 Goals Not Met All others Revised Goals NA Plan Plan Continue with current POC. PT suggest follow-up with pain management MD secondary to lack of improvements to date. Frequency of Therapy 2x/week Duration of therapy 4 weeks Time and Billing Re-Eval Time 15 Re-Eval Billing Units 1 PHYSICIAN CERTIFICATION: I certify the specified therapy services for Oren Cr are required, authorized, and reviewed every 30 days.
== END 2022-02-05 08:35 | disposition home or self-care (01) ==
LOC: PT 08:30
PROVIDERS: PCP Family Medicine; Visit Provider Nurse Practitioner Family
DX: M54.9 Dorsalgia, unspecified (principal); M54.50 Low back pain, unspecified
CPT/HCPCS: 97010; 97012; 97014; 97110; 97140; 97163; 97164; G0283

== ENCOUNTER → 2022-02-10 15:28 | Outpatient (CLI) | payer OTHER, SELFPAY ==
[2022-02-10 18:14] LABS: Vitamin B12 358 pg/mL (239-931)
== END ==
PROVIDERS: PCP Family Medicine; Visit Provider Specialist
DX: G43.909 Migraine, unspecified, not intractable, without status migrainosus (principal)
CPT/HCPCS: 36415; 82607

== ENCOUNTER → 2022-02-18 11:46 | Outpatient (POV) | payer OTHER, SELFPAY ==
[2022-02-18 12:08] VITALS: BP 141/97; PULSE 87; RESP 18; O2SAT 98; BMI 23.3
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
== END | disposition home or self-care (01) ==
PROVIDERS: PCP Family Medicine; Visit Provider Nurse Practitioner Family
DX: M51.14 Intervertebral disc disorders with radiculopathy, thoracic region (principal); M51.16 Intervertebral disc disorders with radiculopathy, lumbar region
CPT/HCPCS: 99212; G0463

== ENCOUNTER → 2022-04-06 16:40 | Outpatient (CLI) | payer OTHER, SELFPAY ==
--- NOTE | 2022-04-06 17:07 | XR_ITS ---
PROCEDURE INFORMATION: Exam: XR Lumbosacral Spine Exam date and time: 04/06/2022 5:11 PM Age: 46 years old Clinical indication: Low back pain; Additional info: Severe back pain, mid back TECHNIQUE: Imaging protocol: Radiologic exam of the lumbosacral spine. Views: 2 or 3 views. COMPARISON: MR LUMBAR SPINE WO CON 10/09/2021 8:06 AM FINDINGS: Bones/joints: Mild scoliosis. No acute fracture or dislocation. Soft tissues: Unremarkable. IMPRESSION: Mild scoliosis.
--- NOTE | 2022-04-06 17:07 | XR_ITS ---
PROCEDURE INFORMATION: Exam: XR Thoracic Spine Exam date and time: 04/06/2022 5:11 PM Age: 46 years old Clinical indication: Pain in thoracic spine; Additional info: Severe mid back pain, denies trauma TECHNIQUE: Imaging protocol: Radiologic exam of the thoracic spine. Views: 2 views. COMPARISON: MR THORACIC SPINE WO CON 11/06/2021 9:02 AM FINDINGS: Bones/joints: Mild scoliosis. No acute fracture or dislocation. Soft tissues: Unremarkable. IMPRESSION: Mild scoliosis.
[2022-04-06 17:24] LABS: Basophils # 0.1 K/mm3 (0-0.2); Basophils % 1.3 % (0.1-2.0); Eosinophils # 0.1 K/mm3 (0.0-0.4); Eosinophils % 1.4 % (0.1-12.0); Hemoglobin 15.7 g/dL (14.1-18.0); Lymphocytes # 1.6 K/mm3 (0.7-4.5); Lymphocytes % 30.4 % (10-50); Mean Corpuscular HGB Conc 33.3 g/dL (31.8-35.4); Mean Corpuscular Hemoglobin 30.1 pg (27.0-31.2); Mean Corpuscular Volume 90.2 fl (80-94); Mean Platelet Volume 7.3 fl (7.4-10.4); Monocytes # 0.3 K/mm3 (0.1-1.0); Monocytes % 4.8 % (1.7-9.3); Neutrophils # 3.2 K/mm3 (1.8-7.8); Neutrophils % 62.1 % (37.0-80.0); Platelet Count 215 K/mm3 (142-424); Red Blood Count 5.22 M/mm3 (4.60-6.20); White Blood Count 5.1 K/mm3 (4.8-10.8)
[2022-04-06 17:57] LABS: Erythrocyte Sedimentation Rate 1 mm/hr (0-15)
[2022-04-06 19:23] LABS: Alanine Aminotransferase 23 U/L (12-78); Albumin Level 4.6 g/dl (3.5-5.0); Albumin/Globulin Ratio 1.7 (1.1-1.8); Alkaline Phosphatase 97 U/L (38-126); Aspartate Amino Transferase 18 U/L (17-59); Bilirubin,Total 0.4 mg/dl (0.2-1.3); Blood Urea Nitrogen 20 mg/dl (9-20); Calcium 8.8 mg/dl (8.4-10.2); Carbon Dioxide 28 mmol/L (22.0-30.0); Chloride 107 mmol/L (98-107); Estimated Glomerular Filt Rate 91 ml/min (>60); GFR (African American) 110 ML/MIN (>60); Globulin 2.7 g/dL (1.3-3.2); Glucose 92 mg/dl (74-100); Sodium 141 mmol/L (136-145); Total Protein,Serum 7.3 g/dl (6.3-8.2)
[2022-04-06 19:53] LABS: Thyroid Stimulating Hormone 2.06 uIU/mL (0.465-4.68)
[2022-04-09 00:09] LABS: Triiodothyronine (T3) Free 2.8 pg/mL (2.0-4.4)
[2022-04-11 16:32] LABS: Antinuclear Antibodies (ANA) NEGATIVE
== END ==
PROVIDERS: PCP Family Medicine; Visit Provider Specialist
DX: G47.11 Idiopathic hypersomnia with long sleep time (principal); G93.40 Encephalopathy, unspecified; G47.10 Hypersomnia, unspecified; M54.9 Dorsalgia, unspecified; M47.816 Spondylosis without myelopathy or radiculopathy, lumbar region
CPT/HCPCS: 36415; 72070; 72100; 80053; 84443; 84481; 85025; 85651; 86038; 86225; 86235

== ENCOUNTER → 2022-04-15 13:23 | Outpatient (CLI) | payer OTHER, SELFPAY ==
--- NOTE | 2022-04-15 13:24 | MR_ITS ---
FINAL REPORT CLINICAL HISTORY: cerebral cyst, memory oss, headaches COMPARISON: 01/13/2021 FINDINGS: Multiplanar MR imaging of the brain was performed without and with contrast. There is no evidence of intracranial hemorrhage or mass. 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 No abnormal extra-axial fluid collection is seen. The ventricular size is within normal limits. There is no evidence of shift of the midline structures. The posterior fossa and brainstem have an unremarkable appearance. No area of abnormal restricted diffusion is identified. No abnormal contrast enhancement is seen. Normal major vessel vascular flow voids are noted. IMPRESSION: No acute intracranial abnormality identified. 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 Reviewed, Interpreted and Dictated by Cordell Mboley III, MD Transcribed by Jane Coleman Authenticated and [facility]
== END ==
PROVIDERS: PCP Family Medicine; Visit Provider Specialist
DX: G47.11 Idiopathic hypersomnia with long sleep time (principal); G93.40 Encephalopathy, unspecified
CPT/HCPCS: 70553; A9576

== ENCOUNTER → 2022-06-25 14:33 | Outpatient (CLI) | payer OTHER, SELFPAY ==
--- NOTE | 2022-06-25 14:37 | MR_ITS ---
FINAL REPORT CLINICAL HISTORY: INTERVERTEBRAL DISC STENOSIS OF NEURAL CANAL COMPARISON: 10/27/2021 FINDINGS: Multiplanar MR imaging of the thoracic spine was performed without contrast. On the sagittal T2-weighted images, disc degeneration is seen throughout. There is loss of the thoracic kyphosis. There is no evidence of fracture. The vertebral alignment is normal. On the axial images, there is a moderate left paracentral T12-L1 disc protrusion with moderate compromise of the left lateral recess. Finding is best seen on image 24 of series 10. There is a benign-appearing cyst in the right kidney measuring 2.4 x 1.7 cm. IMPRESSION: Moderate left paracentral T12-L1 disc protrusion with moderate compromise of the left lateral recess. Reviewed, Interpreted and Dictated by Tin Maynard MD Transcribed by Jane Coleman Authenticated and . [facility]
--- NOTE | 2022-06-25 14:37 | MR_ITS ---
FINAL REPORT CLINICAL HISTORY: INTERVERTEBRAL DISC STENOSIS OF NEURAL CANAL numbness and tinlging x 6x months to 1 year COMPARISON: 10/09/2021 FINDINGS: Multiplanar MR imaging of the lumbar spine was performed without contrast. On the sagittal T2-weighted images, there is abnormal decreased signal at the T12-L1, L1-2, and L2-3 discs. The vertebrae are of normal height. The vertebral alignment is normal. L1-2: Posterolateral disc protrusions. Mild to moderate bilateral neural foraminal narrowing. L2-3: Posterolateral disc protrusions. Mild to moderate bilateral neural foraminal narrowing. L3-4: There is no significant canal stenosis or neural foraminal narrowing. L4-5: There is no significant canal stenosis or neural foraminal narrowing. L5-S1: There is no significant canal stenosis or neural foraminal narrowing. There appears to be left paracentral disc protrusions at T12-L1 level with moderate compromise of left side of the spinal canal. Axial images at this level were not obtained. Appearance is stable compared to prior. IMPRESSION: Stable appearing disc protrusions at T12-L1, L1-2, and L2-3 with stable neural foraminal narrowing at L1-2 and L2-3. Reviewed, Interpreted and Dictated by Tin Maynard MD Transcribed by Manasa Ron Authenticated and [facility]
== END ==
PROVIDERS: PCP Family Medicine; Visit Provider Physical Medicine & Rehabilitation
DX: M99.52 Intervertebral disc stenosis of neural canal of thoracic region (principal); M99.53 Intervertebral disc stenosis of neural canal of lumbar region
CPT/HCPCS: 72146; 72148; 76376

== ENCOUNTER → 2022-12-13 12:07 | Outpatient (CLI) | payer OTHER, SELFPAY ==
[2022-12-13 12:13] LABS: MANUAL DIFFERENTIAL MANUAL DIFFERENTIAL (MANUAL DIFF)
[2022-12-13 12:48] LABS: Basophils % 0.6 % (0.1-2.0); Eosinophils # 0.1 K/mm3 (0.0-0.4); Eosinophils % 1.3 % (0.1-12.0); Hematocrit 47.1 % (42.0-52.0); Hemoglobin 16.6 g/dL (14.1-18.0); Lymphocytes # 1.1 K/mm3 (0.7-4.5); Lymphocytes % 15.3 % (10-50); Mean Corpuscular HGB Conc 35.2 g/dL (31.8-35.4); Mean Corpuscular Hemoglobin 32.3 pg (27.0-31.2); Mean Corpuscular Volume 91.8 fl (80-94); Mean Platelet Volume 7.5 fl (7.4-10.4); Monocytes # 0.3 K/mm3 (0.1-1.0); Monocytes % 4.8 % (1.7-9.3); Neutrophils # 5.5 K/mm3 (1.8-7.8); Neutrophils % 77.9 % (37.0-80.0); Platelet Count 212 K/mm3 (142-424); Red Blood Count 5.13 M/mm3 (4.60-6.20); Red Cell Distribution Width 12.8 % (11.5-17.5); White Blood Count 7.1 K/mm3 (4.8-10.8)
[2022-12-13 13:21] LABS: Erythrocyte Sedimentation Rate 4 mm/hr (0-15)
[2022-12-13 13:28] LABS: Chloride 102 mmol/L (98-107); Potassium 3.9 mmoL/L (3.5-5.1); Sodium 140 mmol/L (136-145)
[2022-12-13 13:30] LABS: Alanine Aminotransferase 61 U/L (12-78); Aspartate Amino Transferase 38 U/L (17-59); Blood Urea Nitrogen 12 mg/dl (9-20); Estimated Glomerular Filt Rate 104 ml/min (>60); GFR (African American) 126 ML/MIN (>60)
[2022-12-13 13:31] LABS: Albumin Level 4.7 g/dl (3.5-5.0); Albumin/Globulin Ratio 1.7 (1.1-1.8); Alkaline Phosphatase 116 U/L (38-126); Anion Gap 10.9 mEq/L (5-15); Bilirubin,Total 0.3 mg/dl (0.2-1.3); Calcium 9.1 mg/dl (8.4-10.2); Carbon Dioxide 31 mmol/L (22.0-30.0); Creatine Kinase 103 U/L (55-170); Globulin 2.8 g/dL (1.3-3.2); Glucose 101 mg/dl (74-100); Total Protein,Serum 7.5 g/dl (6.3-8.2)
[2022-12-13 13:37] LABS: C-Reactive Protein 0.5 mg/L (0-4)
[2022-12-13 13:58] LABS: Eosinophils % 2 % (0-3); Lymphocytes % 15 % (10-50); Monocytes % 2 % (2-9); Neutrophils % 77 % (42-76); Total Cells Counted 100
[2022-12-13 14:07] LABS: Platelet Estimate Normal; RBC Morphology Normal
[2022-12-14 15:40] LABS: Aldolase 6.6 U/L (3.3-10.3); Anti-Jo-1 <0.2 AI (0.0-0.9)
[2022-12-20 08:56] LABS: AChR Binding Abs <0.03; AChR Blocking Abs 17
[2022-12-20 08:57] LABS: AChR Modulating Ab 0; Anti-Jo-1 <0.2; Anti-Jo-1 Charge YES; Antinuclear Antibodies (ANA) Negative
== END ==
PROVIDERS: PCP Family Medicine; Visit Provider Specialist
DX: R42 Dizziness and giddiness (principal); I25.10 Atherosclerotic heart disease of native coronary artery without angina pectoris; K21.9 Gastro-esophageal reflux disease without esophagitis; R53.1 Weakness; M47.816 Spondylosis without myelopathy or radiculopathy, lumbar region; M54.9 Dorsalgia, unspecified; M79.604 Pain in right leg; Z87.19 Personal history of other diseases of the digestive system
CPT/HCPCS: 36415; 80053; 82085; 82550; 83519; 85007; 85014; 85018; 85048; 85049; 85651; 86038; 86140; 86225; 86235; 86255

== ENCOUNTER → 2022-12-28 09:39 | Outpatient (CLI) | payer OTHER, SELFPAY ==
--- NOTE | 2022-12-28 09:40 | MR_ITS ---
FINAL REPORT TECHNIQUE: Multiplanar and multisequence imaging of the cervical spine was obtained. CLINICAL HISTORY: neck pain, weakness arms, legs, gait disturbances COMPARISON: October 2021 FINDINGS: Alignment is normal. There is straightening of the cervical curvature. Vertebral body height is preserved. The appearance of the T1 and T2 vertebral bodies with partial anterior fusion is likely congenital. Signal intensity within the substance of the spinal cord is normal. Bone marrow signal intensity is within normal limits. No acute paraspinal abnormality. C2/3: There is no focal disc herniation, central stenosis or neural foraminal narrowing. C3/4: There is no focal disc herniation, central stenosis or neural foraminal narrowing. C4/5: There is an annular bulge with degenerative endplate change and facet osteoarthropathy. There is mild to moderate bilateral neural foraminal narrowing. C5/6: There is a small central protrusion with no central stenosis or neural foraminal narrowing. C6/7: There is an annular bulge with degenerative endplate change and facet osteoarthropathy. There is mild central canal stenosis. There is moderate to severe right and no left neural foraminal narrowing.. C7/T1: There is an annular bulge with degenerative endplate change and facet osteoarthropathy. There is severe right and mild left neural foraminal narrowing. IMPRESSION: Multilevel cervical degenerative disc disease similar to prior. Reviewed, Interpreted and Dictated by Rika Case MD Transcribed by Paolo Dill Authenticated and [facility]
== END ==
PROVIDERS: PCP Family Medicine; Visit Provider Specialist
DX: M54.2 Cervicalgia (principal); R53.1 Weakness
CPT/HCPCS: 72141; 76376

== ENCOUNTER 2023-05-18 14:08 | Outpatient (CLI) | payer OTHER, SELFPAY ==
--- NOTE | 2023-05-18 14:16 | XR_ITS ---
FINAL REPORT CLINICAL HISTORY: SPINAL STENOSIS OF LUMBAR COMPARISON: None FINDINGS: LUMBOSACRAL SPINE SERIES Five views of the lumbosacral spine were obtained. There is no fracture present. There is no malalignment. There is mild anterior osteophyte formation at L1-2 and L2-3. IMPRESSION: No acute process. Reviewed, Interpreted and Dictated by Tin Maynard MD Transcribed by Manasa Ron Authenticated and . [facility]
== END 2023-05-18 23:59 ==
LOC: RAD 14:12
PROVIDERS: PCP Family Medicine; Visit Provider Physical Medicine & Rehabilitation
DX: M99.53 Intervertebral disc stenosis of neural canal of lumbar region (principal); M48.061 Spinal stenosis, lumbar region without neurogenic claudication
CPT/HCPCS: 72110